=== PATIENT | female | born 1985 | race Caucasian/White ===

== ENCOUNTER 2019-08-07 10:16 | Emergency (ER) | payer OTHER ==
[2019-08-07 11:03] VITALS: RESP 18
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
--- NOTE | 2019-08-07 12:10 | XR ---
EXAMINATION TYPE: XR chest 2V DATE OF EXAM: 08/07/2019 COMPARISON: NONE HISTORY: Chest pain TECHNIQUE: Frontal and lateral views of the chest are obtained. FINDINGS: There is no focal air space opacity. No evidence for pneumothorax. No pleural effusion. The cardiac silhouette size is within normal limits. The osseous structures are grossly intact. IMPRESSION: 1. No acute cardiopulmonary process.
--- NOTE | 2019-08-07 12:10 | XR ---
EXAMINATION TYPE: XR lumbar spine 2 or 3V DATE OF EXAM: 08/07/2019 CLINICAL HISTORY: pain TECHNIQUE: Three views of the lumbar spine are submitted. COMPARISON: None. FINDINGS: There are 5 lumbar type vertebral bodies identified. Postoperative changes of lumbar laminectomy and fusion at L4-5 and L5-S1. Transpedicular screws are in place. Alignment is anatomic. The lumbar spine shows satisfactory alignment without evidence of acute fracture or dislocation. Vertebral body heigh ts are within normal limits. Disc spaces are within normal limits. The overlying soft tissue appea rs unremarkable. IMPRESSION: No acute fracture or dislocation is seen in the lumbar spine. ICD 10 NO FRACTURE, INITIAL EVALUATION
[2019-08-07 12:44] VITALS: BP 126/88; PULSE 90; TEMP 97.9
== END 2019-08-07 12:56 | disposition home or self-care (01) ==
LOC: EC 10:16
DX: S16.1XXA Strain of muscle, fascia and tendon at neck level, initial encounter (principal); G40.909 Epilepsy, unspecified, not intractable, without status epilepticus; Z88.1 Allergy status to other antibiotic agents; Z79.899 Other long term (current) drug therapy; Z98.890 Other specified postprocedural states; V49.49XA Driver injured in collision with other motor vehicles in traffic accident, initial encounter; Y92.410 Unspecified street and highway as the place of occurrence of the external cause
CPT/HCPCS: 71046; 72100; 99284

== ENCOUNTER → 2022-06-22 | Outpatient (CLI) | payer BC, OTHER ==
[2022-06-22 18:20] LABS: Basophils # (A) 0.02 X 10*3/uL (0.00-0.10); Basophils % (A) 0.5 %; Eosinophils # (A) 0.05 X 10*3/uL (0.04-0.35); Eosinophils % (A) 1.3 %; HGB 12.5 g/dL (12.0-15.0); Immature Grans, Automated 0.3 %; Lymphocytes # (A) 1.08 X 10*3/uL (0.90-5.00); Lymphocytes % (A) 27.9 %; MCH 30.2 pg (27.0-32.0); MCHC 33.8 g/dL (32.0-37.0); MCV 89.4 fL (80.0-97.0); Monocytes # (A) 0.24 X 10*3/uL (0.20-1.00); Monocytes % (A) 6.2 %; NRBC Per 100 WBC 0 /100 WBCS (0.0-0.0); Neutrophils # (A) 2.47 X 10*3/uL (1.80-7.70); Neutrophils % (A) 63.8 %; Platelet Count 153 X 10*3/uL (140-440); RBC 4.14 X 10*6/uL (4.10-5.20); WBC 3.87 X 10*3/uL (4.50-10.00)
[2022-06-22 19:13] LABS: Iron 73 ug/dL (50-170)
== END | disposition home or self-care (01) ==
LOC: LABWHC1 12:23
PROVIDERS: ATTEND Family Medicine
DX: I10 Essential (primary) hypertension (principal); Z79.891 Long term (current) use of opiate analgesic
CPT/HCPCS: 36415; 83540; 85025; 86618

== ENCOUNTER → 2022-07-17 | Outpatient (CLI) | payer BC ==
--- NOTE | 2022-07-17 11:44 | MR ---
EXAMINATION TYPE: MR brain wo/w con DATE OF EXAM: 07/17/2022 COMPARISON: NONE HISTORY: Mental status change, chronic daily headaches. Additional symptoms of dizziness per patient. TECHNIQUE: Multiplanar, multisequence images of the brain and brainstem is performed without and with IV contras t, utilizing 8.5 mL intravenous Gadavist . FINDINGS: Diffusion weighted images demonstrate no evidence of a recent infarct or other diffusion ab normality. There is no extra-axial fluid collection or significant white matter signal abnormality. The ventricular system and cisternal spaces are normal in size and appearance. The brain volume is age appropriate. T2 coronal weighted images show hippocampal gyri to appear symmetric and felt within normal limits. Midline structures demonstrate normal morphology. The craniocervical junction appears within normal limits. Post contrast images demonstrate no abnormal enhancement. The dural venous sinuses appear pa tent. The visualized sinuses are clear and the globes are intact. No suspicious fluid signal bilatera l mastoid air cells. IMPRESSION: Unremarkable study. No suspicious findings are evident.
== END | disposition home or self-care (01) ==
LOC: RADMRIMAIN 10:26
PROVIDERS: ATTEND Family Medicine
DX: R41.82 Altered mental status, unspecified (principal); G44.89 Other headache syndrome
CPT/HCPCS: 70553; A9585

== ENCOUNTER → 2023-06-25 | Outpatient (CLI) | payer BC ==
[2023-06-25 17:06] LABS: BUN/Creat Ratio 27.83 Ratio (12.00-20.00); Blood Urea Nitrogen 16.7 mg/dL (9.0-27.0); Carbon Dioxide 25.6 mmol/L (21.6-31.8); Chloride 106 mmol/L (96-109); Glucose 82 mg/dL (70-110); Potassium 4.3 mmol/L (3.5-5.5); Sodium 140 mmol/L (135-145)
[2023-06-25 17:07] LABS: ALT 28 U/L (8-44); AST 25 U/L (13-35); Albumin/Globulin Ratio 2.22 Ratio (1.60-3.17); Alkaline Phosphatase 48 U/L (41-126); Calcium 8.6 mg/dL (8.7-10.3); Globulin 1.8 d/dL (1.6-3.3); T4, Free (Free Thyroxine) 0.86 ng/dL (0.80-1.80); Total Bilirubin 0.2 mg/dL (0.3-1.2); Total Protein 5.8 d/dL (6.2-8.2)
== END | disposition home or self-care (01) ==
LOC: LABWHC1 10:42
PROVIDERS: ATTEND Family Medicine
DX: I10 Essential (primary) hypertension (principal); Z79.899 Other long term (current) drug therapy
CPT/HCPCS: 36415; 80053; 83036; 84439; 84443; 84481; 84681

== ENCOUNTER 2025-04-12 12:04 | Emergency (ER) | payer BC, OTHER ==
[2025-04-12 12:56] LABS: Basophils # (A) 0.01 10*3/uL (0.00-0.10); Basophils % (A) 0.3 %; Eosinophils # (A) 0.07 10*3/uL (0.04-0.35); Eosinophils % (A) 1.9 %; HCT 32.3 % (37.2-46.3); HGB 11.1 g/dL (12.0-15.0); Lymphocytes # (A) 1.13 10*3/uL (0.90-5.00); Lymphocytes % (A) 31.4 %; MCHC 34.4 g/dL (32.0-37.0); MCV 87.3 fL (80.0-97.0); Mean Platelet Volume 10.9 fL (9.5-12.2); Monocytes # (A) 0.21 10*3/uL (0.20-1.00); Monocytes % (A) 5.8 %; Neutrophils # (A) 2.17 10*3/uL (1.80-7.70); Neutrophils % (A) 60.3 %; Platelet Count 148 10*3/uL (140-440); RDW 11.9 % (11.5-14.5)
[2025-04-12 13:06] LABS: ALT 12 U/L (4-34); AST 19 U/L (14-36); African American GFR (CKD) >90 (>60 ml/min/1.73 sqM); Albumin 4.2 g/dL (3.5-5.0); Alkaline Phosphatase 38 U/L (38-126); Anion Gap 8 mmol/L; Blood Urea Nitrogen 15 mg/dL (7-17); Carbon Dioxide 27 mmol/L (22-30); Chloride 105 mmol/L (98-107); Glucose 98 mg/dL (74-99); Non-African American GFR(CKD) >90 (>60 ml/min/1.73 sqM); Potassium 4.4 mmol/L (3.5-5.1); Sodium 140 mmol/L (137-145); Total Bilirubin 0.4 mg/dL (0.2-1.3); Total Protein 6.5 g/dL (6.3-8.2)
--- NOTE | 2025-04-12 16:03 | ED ---
General Adult HPI - General Chief complaint: GI Bleed Stated complaint: GI Bleed/R side Pain Time Seen by Provider: 04/12/25 16:03 Source: patient, family, RN notes reviewed Mode of arrival: ambulatory Limitations: no limitations - History of Present Illness Initial comments: 40-year-old female presented the ER for evaluation of abdominal pain. Patient states on around noon she had an episode of dark red blood per rectum. She states this continued for approximately 4 hours. She states since then she is unable to have a bowel movement. She has tried owep-chl-rheppck laxatives without relief. Patient states she is experiencing a cramping burning abdominal discomfort. She states it feels like there is "a hot omid" after eating. He states shortly after eating pain will radiate to right upper quadrant and right flank.. She also reports her abdomen appears distended. Patient also mitts to decreased appetite and nausea. She denies vomiting. Denies any known fevers but does admit to chills. No urinary complaints. Patient does states she is on her menstrual cycle first day was but states her menstrual cycle started around 6 PM after rectal bleeding. Patient denies any previous abdominal surgeries. No history of ulcerative colitis or Crohn's disease. Patient denies any urinary complaints. No blood thinner use. Patient reports a history of iron deficiency anemia and has received iron infusions in the past. Patient denies headache, cough, congestion, chest pain, shortness of breath or other complaints at this time. - Related Data Home Medications Medication Instructions Recorded Confirmed levETIRAcetam [Keppra] 750 mg PO BID 08/07/19 04/14/25 Albuterol Sulfate/Budesonide 2 puff INHALATION RT-Q4H PRN 04/12/25 04/14/25 [Airsupra 90-80 Mcg Inhaler] Galcanezumab-Gnlm [Emgality Pen] 120 mg SQ Q30D 04/12/25 04/14/25 Lisdexamfetamine Dimesylate 40 mg PO DAILY 04/12/25 04/14/25 [Vyvanse] clonazePAM [KlonoPIN] 1 mg PO BID 04/12/25 04/14/25 Previous Rx's Medication Instructions Recorded Famotidine [Pepcid] 20 mg PO BID #28 tablet 04/12/25 Ondansetron Odt [Zofran ODT] 4 mg PO Q8HR PRN #10 tab 04/12/25 Allergies Allergy/AdvReac Type Severity Reaction Status Date / Time levofloxacin [From Levaquin] AdvReac grand mal Verified 04/14/25 10:59 seizure Review of Systems ROS Statement: Those systems with pertinent positive or pertinent negative responses have been documented in the HPI. ROS Other: All systems not noted in ROS Statement are negative. Past Medical History Past Medical History: No Reported History Additional Past Medical History / Comment(s): Epilepsy History of Any Multi-Drug Resistant Organisms: None Reported Past Surgical History: Back Surgery Past Psychological History: No Psychological Hx Reported Past Alcohol Use History: None Reported Past Drug Use History: None Reported General Exam Limitations: no limitations General appearance: alert, in no apparent distress Respiratory exam: Present: normal lung sounds bilaterally. Absent: respiratory distress, wheezes, rales, rhonchi, stridor Cardiovascular Exam: Present: regular rate, normal rhythm, normal heart sounds. Absent: systolic murmur, diastolic murmur, rubs, gallop, clicks GI/Abdominal exam: Present: soft, tenderness (RUQ), normal bowel sounds Rectal exam: Present: normal inspection, normal rectal tone Neurological exam: Present: alert, oriented X3, CN II-XII intact Skin exam: Present: warm, dry, intact, normal color. Absent: rash Course Vital Signs 04/12/25 04/12/25 04/12/25 12:08 17:10 19:18 Temperature 98.0 F 98.2 F Pulse Rate 80 77 75 Respiratory 16 18 16 Rate Blood Pressure 137/75 102/63 111/71 O2 Sat by Pulse 100 99 99 Oximetry - Reevaluation(s) Reevaluation #1: Rectal exam chaperoned by Dunia Sipmson RN Medical Decision Making - Medical Decision Making Was pt. sent in by a medical professional or institution (, PA, [employer]ENER, urgent care, hospital, or alf...) When possible be specific @ -No Did you speak to anyone other than the patient for history (EMS, parent, family, police, friend...)? What history was obtained from this source @ -No Did you review nursing and triage notes (agree or disagree)? Why? @ -I reviewed and agree with nursing and triage notes Were old charts reviewed (outside hosp., previous admission, EMS record, old EKG, old radiological studies, urgent care reports/EKG's, alf records)? Report findings @ -No old charts were reviewed Differential Diagnosis (chest pain, altered mental status, abdominal pain women, abdominal pain men, vaginal bleeding, weakness, fever, dyspnea, syncope, headache, dizziness, GI bleed, back pain, seizure, CVA, palpatations, mental health, musculoskeletal)? @ -Differential GI Bleed:Esophageal varices, aortoenteric fistula, My- Pierce, gastritis, peptic ulcer disease, diverticulosis, inflammatory bowel disease, hemorrhoids, fissure, colitis, malignancy, Meckel's diverticulum, this is not meant to be an all-inclusive list. EKG interpreted by me (3pts min.). @ -None done X-rays interpreted by me (1pt min.). @ -None done CT interpreted by me (1pt min.). @ -None done U/S interpreted by me (1pt. min.). @ -Gallbladder us borderline dilation of CBD, 0.7 cm. No evidence of acute cholecystitis. Mild hepatic steatosis What testing was considered but not performed or refused? (CT, X-rays, U/S, labs)? Why? @ -None What meds were considered but not given or refused? Why? @ -None Did you discuss the management of the patient with other professionals (professionals i.e. , PA, [employer]ENER, lab, RT, psych nurse, pediatric social worker, general house worker, teacher, chief lifestyle officer, pillowcase folder)? Give summary @ -No Was smoking cessation discussed for >3mins.? @ -No Was critical care preformed (if so, how long)? @ -No Were there social determinants of health that impacted care today? How? (Homelessness, low income, unemployed, alcoholism, drug addiction, transportation, low edu. Level, literacy, decrease access to med. care, usp, rehab)? @ -No Was there de-escalation of care discussed even if they declined (Discuss DNR or withdrawal of care, Hospice)? DNR status @ -No What co-morbidities impacted this encounter? (DM, HTN, Smoking, COPD, CAD, Cancer, CVA, ARF, Chemo, Hep., AIDS, mental health diagnosis, sleep apnea, morbid obesity)? @ -None Was patient admitted / discharged? Hospital course, mention meds given and route, prescriptions, significant lab abnormalities, going to OR and other pertinent info. @ -Discharge. 40-year-old female presented to ER for evaluation of abdominal pain. Workup initiated in triage. Upon rooming, history and physical exam completed. Vital signs stable. Patient no signs acute distress nontoxic- appearing. Given patient reporting bright red blood per stool, rectal exam was performed and chaperoned by Dunia DACOSTA. Rectal exam unremarkable. Laboratory studies obtained remarkable for hemoglobin 11.1 which appears to be patient's baseline. Patient does report a history of iron deficiency anemia and states she is currently on her menstrual cycle. CMP unremarkable. Urinalysis with trace blood likely related to menstrual cycle. No evidence of infection. Urine hCG negative. Stool occult negative. As abdominal exam remarkable for right u pper quadrant abdominal tenderness, gallbladder ultrasound obtained. There is no evidence of acute cholecystitis with a mildly dilated common bile duct measuring 0.7 cm. Hepatobiliary laboratory studies within normal range, total bilirubin 0.4. Patient provided with symptomatic treatment in emergency department. Upon reevaluation, patient educated on today's findings. Patient is comfortable and stable for discharge at this time. Patient tolerating oral intake. Pepcid and Zofran prescribed. Advised patient follow-up closely with PCP for further evaluation in the extremity for 48 hours. Return parameters discussed. Patient discharged stable condition. Patient verbally expressed understanding agree with care plan. Case discussed with ED attending, Dr. Bhatt Undiagnosed new problem with uncertain prognosis? @ -No Drug Therapy requiring intensive monitoring for toxicity (Heparin, Nitro, Insulin, Cardizem)? @ -No Were any procedures done? @ -No Diagnosis/symptom? @ -Abdominal pain Acute, or Chronic, or Acute on Chronic? @ -Acute Uncomplicated (without systemic symptoms) or Complicated (systemic symptoms)? @ -Uncomplicated Side effects of treatment? @ -No Exacerbation, Progression, or Severe Exacerbation? @ -No Poses a threat to life or bodily function? How? (Chest pain, [place], [place], pneumonia, PE, COPD, DKA, ARF, appy, cholecystitis, CVA, Diverticulitis, Homicidal, Suicidal, threat to staff... and all critical care pts) @ -No - Lab Data Result diagrams: 04/12/25 12:53 04/12/25 12:53 Lab Results 04/12/25 04/12/25 04/12/25 Range/Units 12:53 12:53 12:53 WBC 3.60 L (4.50-10.00) 10*3/uL RBC 3.70 L (4.10-5.20) 10*6/uL Hgb 11.1 L (12.0-15.0) g/dL Hct 32.3 L (37.2-46.3) % MCV 87.3 (80.0-97.0) fL MCH 30.0 (27.0-32.0) pg MCHC 34.4 (32.0-37.0) g/dL Plt Count 148 (140-440) 10*3/uL MPV 10.9 (9.5-12.2) fL Immature Gran % (Auto) 0.3 % Neutrophils % 60.3 % Lymphocytes % 31.4 % Monocytes % 5.8 % Eosinophils % 1.9 % Basophils % 0.3 % Immature Gran # 0.01 (0.00-0.04) 10*3/uL Neutrophils # 2.17 (1.80-7.70) 10*3/uL Lymphocytes # 1.13 (0.90-5.00) 10*3/uL Monocytes # 0.21 (0.20-1.00) 10*3/uL Eosinophils # 0.07 (0.04-0.35) 10*3/uL Basophils # 0.01 (0.00-0.10) 10*3/uL Sodium 140 (137-145) mmol/L Potassium 4.4 (3.5-5.1) mmol/L Chloride 105 (98-107) mmol/L Carbon Dioxide 27 (22-30) mmol/L Anion Gap 8 mmol/L BUN 15 (7-17) mg/dL Creatinine 0.57 (0.52-1.04) mg/dL Est GFR (CKD-EPI)AfAm >90 (>60 ml/min/1.73 sqM) Est GFR (CKD-EPI)NonAf >90 (>60 ml/min/1.73 sqM) Glucose 98 (74-99) mg/dL Calcium 9.0 (8.4-10.2) mg/dL Total Bilirubin 0.4 (0.2-1.3) mg/dL AST 19 (14-36) U/L ALT 12 (4-34) U/L Alkaline Phosphatase 38 (38-126) U/L Total Protein 6.5 (6.3-8.2) g/dL Albumin 4.2 (3.5-5.0) g/dL Lipase 117 (23-300) U/L Urine Color Urine Appearance (Clear) Urine pH (5.0-8.0) Ur Specific [place] (1.001-1.035) Urine Protein (Negative) Urine Glucose (UA) (Negative) Urine Ketones (Negative) Urine Blood (Negative) Urine Nitrite (Negative) Urine Bilirubin (Negative) Urine Urobilinogen (<2.0) mg/dL Ur Leukocyte Esterase (Negative) Urine RBC (0-5) /hpf Urine WBC (0-5) /hpf Ur Squamous Epith Cells (0-4) /hpf Urine Bacteria (None) /hpf Urine Mucus (None) /hpf Urine HCG, Qual (Not Detectd) Stool Occult Blood (Negative) 04/12/25 04/12/25 04/12/25 Range/Units 15:14 15:14 17:10 WBC (4.50-10.00) 10*3/uL RBC (4.10-5.20) 10*6/uL Hgb (12.0-15.0) g/dL Hct (37.2-46.3) % MCV (80.0-97.0) fL MCH (27.0-32.0) pg MCHC (32.0-37.0) g/dL Plt Count (140-440) 10*3/uL MPV (9.5-12.2) fL Immature Gran % (Auto) % Neutrophils % % Lymphocytes % % Monocytes % % Eosinophils % % Basophils % % Immature Gran # (0.00-0.04) 10*3/uL Neutrophils # (1.80-7.70) 10*3/uL Lymphocytes # (0.90-5.00) 10*3/uL Monocytes # (0.20-1.00) 10*3/uL Eosinophils # (0.04-0.35) 10*3/uL Basophils # (0.00-0.10) 10*3/uL Sodium (137-145) mmol/L Potassium (3.5-5.1) mmol/L Chloride (98-107) mmol/L Carbon Dioxide (22-30) mmol/L Anion Gap mmol/L BUN (7-17) mg/dL Creatinine (0.52-1.04) mg/dL Est GFR (CKD-EPI)AfAm (>60 ml/min/1.73 sqM) Est GFR (CKD-EPI)NonAf (>60 ml/min/1.73 sqM) Glucose (74-99) mg/dL Calcium (8.4-10.2) mg/dL Total Bilirubin (0.2-1.3) mg/dL AST (14-36) U/L ALT (4-34) U/L Alkaline Phosphatase (38-126) U/L Total Protein (6.3-8.2) g/dL Albumin (3.5-5.0) g/dL Lipase (23-300) U/L Urine Color Colorless Urine Appearance Clear (Clear) Urine pH 6.0 (5.0-8.0) Ur Specific [place] 1.011 (1.001-1.035) Urine Protein Negative (Negative) Urine Glucose (UA) Negative (Negative) Urine Ketones Negative (Negative) Urine Blood Trace H (Negative) Urine Nitrite Negative (Negative) Urine Bilirubin Negative (Negative) Urine Urobilinogen <2.0 (<2.0) mg/dL Ur Leukocyte Esterase Negative (Negative) Urine RBC 2 (0-5) /hpf Urine WBC 1 (0-5) /hpf Ur Squamous Epith Cells 3 (0-4) /hpf Urine Bacteria Rare H (None) /hpf Urine Mucus Rare H (None) /hpf Urine HCG, Qual Not Detected (Not Detectd) Stool Occult Blood Negative (Negative) - Radiology Data Radiology results: report reviewed, image reviewed Disposition Clinical Impression: Abdominal pain Disposition: HOME SELF-CARE Condition: Stable Instructions (If sedation given, give patient instructions): Gastrointestinal Bleeding (ED), Abdominal Pain (ED) Additional Instructions: Follow-up with PCP. Return to the ER for any new or worsening concerns. Prescriptions: Famotidine [Pepcid] 20 mg PO BID #28 tablet Ondansetron Odt [Zofran ODT] 4 mg PO Q8HR PRN #10 tab PRN Reason: Nausea Is patient prescribed a controlled substance at d/c from ED?: No Referrals: Tom Ashby MD [Primary Care Provider] - 1-2 days Time of Disposition: 18:58
[2025-04-12 17:42] LABS: Appearance,Urine Clear (Clear); Bacteria,Urine Rare /hpf; Bilirubin,Urine Negative (Negative); Blood,Urine Trace (Negative); Color,Urine Colorless; Glucose,Urine (UA) Negative (Negative); Ketones,Urine Negative (Negative); Leukocyte Esterase,Urine Negative (Negative); Mucus,Urine Rare /hpf; Nitrite,Urine Negative (Negative); Protein,Urine Negative (Negative); RBC,Urine 2 /hpf (0-5); Specific Gravity,Urine 1.011 (1.001-1.035); Squamous Epithelial Cell,Urine 3 /hpf (0-4); Urobilinogen,Urine <2.0 mg/dL (<2.0); WBC,Urine 1 /hpf (0-5)
--- NOTE | 2025-04-12 18:01 | US ---
EXAMINATION TYPE: US gallbladder DATE OF EXAM: 04/12/2025 COMPARISON: NONE CLINICAL INDICATION: Female, 40 years old with history of RUQ abd pain; RUQ abd pain since last day. nausea TECHNIQUE: Grayscale and color Doppler imaging of the right upper quadrant was performed. FINDINGS: EXAM MEASUREMENTS: Liver Length: 11.9 cm Gallbladder Wall: 0.2 cm CBD: 0.7 cm Right Kidney: 8.2 x 4.0 x 5.2 cm DISPLAY SPECIALIST NOTES:limited due to overlying gas Pancreas: Obscured by bowel gas Liver: slightly increased echogenicity. Gallbladder: wnl Evidence for sonographic Salazar's sign: no CBD: dilated Right Kidney: wnl Pancreas is obscured by overlying bowel gas. Slightly increased echogenicity of the liver compared to the right kidney. No focal lesion identified. Gallbladder is within normal limits without stones alexa ntified. No wall thickening or surrounding fluid. Negative sonographic Salazar's sign. Common bile cathi t is borderline dilated. Right kidney demonstrates no hydronephrosis, shadowing calculus or solid mas s. IMPRESSION: 1. Borderline dilatation of the common bile duct. Correlate with bilirubin levels. 2. No evidence for acute cholecystitis. 3. Mild hepatic steatosis. [facility], , 04/12/2025 5:58 PM
[2025-04-12] MEDS: KETOROLAC 15 MG/ML 1 ML VIAL IVP STA (18:29)
[2025-04-12] MEDS: FAMOTIDINE 20 MG/2 ML VIAL IV STA (18:30)
[2025-04-12] MEDS: ONDANSETRON 4 MG/2 ML VIAL IVP STA (18:30)
[2025-04-12 19:19] VITALS: BP 111/71; PULSE 75; RESP 16; TEMP 98.2
== END 2025-04-12 19:19 | disposition home or self-care (01) ==
LOC: EC 12:04
DX: R10.11 Right upper quadrant pain (principal); Z88.1 Allergy status to other antibiotic agents
CPT/HCPCS: 36415; 80053; 83690; 85025; 82272; 81001; 81025; 76705; 99284; 96374; 96375; J2405; J1885; J1308

== ENCOUNTER 2025-04-13 19:20 | Observation (INO) | payer OTHER ==
--- NOTE | 2025-04-13 22:36 | ED ---
General Adult HPI - General Chief complaint: Abdominal Pain Stated complaint: Abnormal Labs-Sent from CT Time Seen by Provider: 04/13/25 21:28 Source: patient Mode of arrival: ambulatory Limitations: no limitations - History of Present Illness Initial comments: Patient is a previously well 40-year-old female presenting today for abdominal pain and bloody diarrhea. Patient states symptoms began last and she had large volume bloody loose stools for 4 hours overnight. Since then she has had persistent abdominal cramping in the right upper quadrant of her abdomen and has not had a bowel movement. Endorses associated bloating. Denies endorses nausea no episodes of emesis. Denies fevers. Endorses chills. Denies chest pain or shortness of breath, dysuria or hematuria, - Related Data Home Medications Medication Instructions Recorded Confirmed levETIRAcetam [Keppra] 750 mg PO BID 08/07/19 04/14/25 Albuterol Sulfate/Budesonide 2 puff INHALATION RT-Q4H PRN 04/12/25 04/14/25 [Airsupra 90-80 Mcg Inhaler] Galcanezumab-Gnlm [Emgality Pen] 120 mg SQ Q30D 04/12/25 04/14/25 Lisdexamfetamine Dimesylate 40 mg PO DAILY 04/12/25 04/14/25 [Vyvanse] clonazePAM [KlonoPIN] 1 mg PO BID 04/12/25 04/14/25 Previous Rx's Medication Instructions Recorded Famotidine [Pepcid] 20 mg PO BID #28 tablet 04/12/25 Ondansetron Odt [Zofran ODT] 4 mg PO Q8HR PRN #10 tab 04/12/25 Allergies Allergy/AdvReac Type Severity Reaction Status Date / Time levofloxacin [From Levaquin] AdvReac grand mal Verified 04/14/25 10:59 seizure Review of Systems ROS Statement: Those systems with pertinent positive or pertinent negative responses have been documented in the HPI. ROS Other: All systems not noted in ROS Statement are negative. Past Medical History Past Medical History: Seizure Disorder Additional Past Medical History / Comment(s): Epilepsy History of Any Multi-Drug Resistant Organisms: None Reported Past Surgical History: Back Surgery Past Psychological History: No Psychological Hx Reported Smoking Status: Never smoker Past Alcohol Use History: None Reported Past Drug Use History: None Reported General Exam - General Exam Comments Initial Comments: PE: CONSTITUTIONAL: No apparent distress, well appearing SKIN: Warm, dry, no jaundice, hives or petechiae EYES: Pupils are equally round, extraocular movements intact without nystagmus, clear conjunctiva, non-icteric sclera HENT: Normocephalic, atraumatic, moist mucus membranes NECK: , Full range of motion, normal appearance PULMONARY: Clear to auscultation without wheezes, rhonchi, or rales, normal excursion, no accessory muscle use and no stridor CARDIOVASCULAR: Regular rate, rhythm, normal S1 and S2. No appreciated murmurs, rubs or gallops. Strong radial pulses with intact distal perfusion. No lower extremity edema GASTROINTESTINAL: Soft, active bowel sounds throughout, tender to palpation in the lower quadrants, mildly distended, no palpable masses, no rebound or guarding. No hepatosplenomegaly GENITOURINARY: MUSCULOSKELETAL: Extremities have no gross deformity, no edema, redness, or swelling. NEUROLOGIC:_a/o x 3, GCS 15, normal mentation and speech. Moves all extremities x 4 without motor or sensory deficit PSYCHIATRIC:_normal mood and affect, thought process is clear and linear Limitations: no limitations Course Vital Signs 04/13/25 04/14/25 04/14/25 19:25 03:33 04:40 Temperature 98.1 F 97.7 F 98 F Pulse Rate 85 95 Pulse Rate [ 78 Pulse Oximetery ] Respiratory 18 18 17 Rate Blood Pressure 131/85 117/66 Blood Pressure 106/68 [Right Arm] O2 Sat by Pulse 100 99 100 Oximetry 04/14/25 04:41 Temperature 97.7 F Pulse Rate 79 Pulse Rate [ Pulse Oximetery ] Respiratory 18 Rate Blood Pressure 121/79 Blood Pressure [Right Arm] O2 Sat by Pulse 99 Oximetry Medical Decision Making - Medical Decision Making Was pt. sent in by a medical professional or institution (, PA, FRONT END ASSISTANT, urgent care, hospital, or long-term...) When possible be specific @Patient was sent in by her primary care provider, Dr. Ashby Did you speak to anyone other than the patient for history (EMS, parent, family, police, friend...)? What history was obtained from this source @ -No Did you review nursing and triage notes (agree or disagree)? Why? @ -I reviewed nursing and triage notes Were old charts reviewed (outside hosp., previous admission, EMS record, old EKG, old radiological studies, urgent care reports/EKG's, long-term records)? Report findings @ -Medical records reviewed-Reviewed CT abdomen pelvis obtained outpatient on 04/13/2025, showed circumferential wall thickening of the ascending colon without surrounding inflammatory changes, may relate to colitis or infectious or inflammatory etiology, diverticulosis without diverticulitis. Additionally reviewed gallbladder ultrasound obtained yesterday on 04/12/2025, showed borderline dilation of the common bile duct, correlate with bilirubin levels, no evidence of cholecystitis, mild hepatic steatosis Differential Diagnosis (chest pain, altered mental status, abdominal pain women, abdominal pain men, vaginal bleeding, weakness, fever, dyspnea, syncope, headache, dizziness, GI bleed, back pain, seizure, CVA, palpatations, mental health, musculoskeletal)? @Differential Abdominal Pain Women: Appendicitis, Cholecystitis, diverticulosis, ischemic bowel, pancreatitis, hepatitis, UTI, gastroenteritis, AAA, incarcerated hernia, bowel obstruction, constipation, inflammatory bowel, hepatitis, peptic ulcer disease, splenic infarction, perforated viscus, vulvitis, ovarian torsion, PID, kidney stone, this is not meant to be an all-inclusive list EKG interpreted by me (3pts min.). @ -As above X-rays interpreted by me (1pt min.). @ -None done CT interpreted by me (1pt min.). @ -None done U/S interpreted by me (1pt. min.). @ -None done What testing was considered but not performed or refused? (CT, X-rays, U/S, labs)? Why? @ -None What meds were considered but not given or refused? Why? @ ciprofloxacin was considered however pt has allergy to levofloxacin Did you discuss the management of the patient with other professionals (maya meade i.e. , PA, FRONT END ASSISTANT, lab, RT, psych nurse, executive secretary social welfare, transport technician, teacher, chief credit officer, family independence case manager)? Give summary @ -No Was smoking cessation discussed for >3mins.? @ -No Was critical care preformed (if so, how long)? @ -No Were there social determinants of health that impacted care today? How? (Homelessness, low income, unemployed, alcoholism, drug addiction, transportation, low edu. Level, literacy, decrease access to med. care, fci, rehab)? @ -No Was there de-escalation of care discussed even if they declined (Discuss DNR or withdrawal of care, Hospice)? @ -No What co-morbidities impacted this encounter? (DM, HTN, Smoking, COPD, CAD, Cancer, CVA, ARF, Chemo, Hep., AIDS, mental health diagnosis, sleep apnea, morbid obesity)? @ -None Was patient admitted / discharged? Hospital course, mention meds given and route, prescriptions, significant lab abnormalities, going to OR and other pertinent info. @Admission-this is a pleasant 40-year-old female presenting today for abdominal bloating, pain, bloody stools last . Was seen here yesterday and ultimately discharged home. A CT was ordered outpatient by her primary care provider that showed colitis, patient was directed back to the ER for admission by her PCP. Patient was initially seen and assessed in triage hallway due to ED at overflow capacity for multiple boarding patients. I obtained patient's permission to obtain history and perform assessment in the hallway to which she was agreeable. Exam was significant for a mildly distended abdomen with mild tenderness palpation across the lower abdomen. Discussed with patient plan for labs, IV fluids, pain medications, antibiotics and admission. She was agreeable with plan of care.Labs were significant for mild anemia, hemoglobin 11.7, previously yesterday was 11.1, white blood cell count 4.15, total bili 1.1, AST 37, ALT 14, lipase 101, lactic 0.9. Of note labs, pain medications, antibiotics were delayed due to difficulty obtaining IV access. Ultimately IV access was able to be obtained by RN. Barrios and lovely ordered. On reassessment pt osmany ins well appearing in NAD. Case discussed with Dr. Mckeon who kindly accepted pt for admission. GI consult placed. Undiagnosed new problem with uncertain prognosis? @ -No Drug Therapy requiring intensive monitoring for toxicity (Heparin, Nitro, Insulin, Cardizem)? @ -No Were any procedures done? @ -No Diagnosis/symptom? @ -colitis Acute, or Chronic, or Acute on Chronic? @acute Uncomplicated (without systemic symptoms) or Complicated (systemic symptoms)? @complicated Side effects of treatment? @ -No Exacerbation, Progression, or Severe Exacerbation? @ -No Poses a threat to life or bodily function? How? (Chest pain, USA, NC, pneumonia, PE, COPD, DKA, ARF, appy, cholecystitis, CVA, Diverticulitis, Homicidal, Suicidal, threat to staff... and all critical care pts) possibly - Lab Data Result diagrams: 04/15/25 08:55 04/15/25 08:55 Lab Results 04/13/25 04/13/25 04/14/25 Range/Units 23:17 23:17 02:07 WBC 4.15 L (4.50-10.00) 10*3/uL RBC 3.97 L (4.10-5.20) 10*6/uL Hgb 11.7 L (12.0-15.0) g/dL Hct 35.1 L (37.2-46.3) % MCV 88.4 (80.0-97.0) fL MCH 29.5 (27.0-32.0) pg MCHC 33.3 (32.0-37.0) g/dL Plt Count 166 (140-440) 10*3/uL MPV 11.1 (9.5-12.2) fL Immature Gran % (Auto) 0.2 % Neutrophils % 72.1 % Lymphocytes % 21.7 % Monocytes % 4.1 % Eosinophils % 1.4 % Basophils % 0.5 % Immature Gran # 0.01 (0.00-0.04) 10*3/uL Neutrophils # 2.99 (1.80-7.70) 10*3/uL Lymphocytes # 0.90 (0.90-5.00) 10*3/uL Monocytes # 0.17 L (0.20-1.00) 10*3/uL Eosinophils # 0.06 (0.04-0.35) 10*3/uL Basophils # 0.02 (0.00-0.10) 10*3/uL PT (10.0-12.5) sec INR (<1.2) APTT (22.0-30.0) sec Sodium 136 L (137-145) mmol/L Potassium 4.4 (3.5-5.1) mmol/L Chloride 101 (98-107) mmol/L Carbon Dioxide 26 (22-30) mmol/L Anion Gap 9 mmol/L BUN 17 (7-17) mg/dL Creatinine 0.55 (0.52-1.04) mg/dL Est GFR (CKD-EPI)AfAm >90 (>60 ml/min/1.73 sqM) Est GFR (CKD-EPI)NonAf >90 (>60 ml/min/1.73 sqM) Glucose 85 (74-99) mg/dL Plasma Lactic Acid Mina 0.9 (0.7-2.0) mmol/L Calcium 9.4 (8.4-10.2) mg/dL Total Bilirubin 1.1 (0.2-1.3) mg/dL AST 37 H (14-36) U/L ALT 14 (4-34) U/L Alkaline Phosphatase 30 L (38-126) U/L Total Protein 7.7 (6.3-8.2) g/dL Albumin 4.8 (3.5-5.0) g/dL Lipase 101 (23-300) U/L 04/14/25 Range/Units 02:07 WBC (4.50-10.00) 10*3/uL RBC (4.10-5.20) 10*6/uL Hgb (12.0-15.0) g/dL Hct (37.2-46.3) % MCV (80.0-97.0) fL MCH (27.0-32.0) pg MCHC (32.0-37.0) g/dL Plt Count (140-440) 10*3/uL MPV (9.5-12.2) fL Immature Gran % (Auto) % Neutrophils % % Lymphocytes % % Monocytes % % Eosinophils % % Basophils % % Immature Gran # (0.00-0.04) 10*3/uL Neutrophils # (1.80-7.70) 10*3/uL Lymphocytes # (0.90-5.00) 10*3/uL Monocytes # (0.20-1.00) 10*3/uL Eosinophils # (0.04-0.35) 10*3/uL Basophils # (0.00-0.10) 10*3/uL PT 10.8 (10.0-12.5) sec INR 1.0 (<1.2) APTT 25.4 (22.0-30.0) sec Sodium (137-145) mmol/L Potassium (3.5-5.1) mmol/L Chloride (98-107) mmol/L Carbon Dioxide (22-30) mmol/L Anion Gap mmol/L BUN (7-17) mg/dL Creatinine (0.52-1.04) mg/dL Est GFR (CKD-EPI)AfAm (>60 ml/min/1.73 sqM) Est GFR (CKD-EPI)NonAf (>60 ml/min/1.73 sqM) Glucose (74-99) mg/dL Plasma Lactic Acid Mina (0.7-2.0) mmol/L Calcium (8.4-10.2) mg/dL Total Bilirubin (0.2-1.3) mg/dL AST (14-36) U/L ALT (4-34) U/L Alkaline Phosphatase (38-126) U/L Total Protein (6.3-8.2) g/dL Albumin (3.5-5.0) g/dL Lipase (23-300) U/L Disposition Clinical Impression: Acute colitis Disposition: ADMITTED IP TO THIS [facility] Condition: Stable
[2025-04-13 23:56] LABS: ALT 14 U/L (4-34); AST 37 U/L (14-36); African American GFR (CKD) >90 (>60 ml/min/1.73 sqM); Albumin 4.8 g/dL (3.5-5.0); Alkaline Phosphatase 30 U/L (38-126); Anion Gap 9 mmol/L; Blood Urea Nitrogen 17 mg/dL (7-17); Calcium 9.4 mg/dL (8.4-10.2); Carbon Dioxide 26 mmol/L (22-30); Chloride 101 mmol/L (98-107); Glucose 85 mg/dL (74-99); Lipase 101 U/L (23-300); Non-African American GFR(CKD) >90 (>60 ml/min/1.73 sqM); Sodium 136 mmol/L (137-145); Total Protein 7.7 g/dL (6.3-8.2)
[2025-04-14 00:09] LABS: Potassium 4.4 mmol/L (3.5-5.1)
[2025-04-14 02:48] LABS: Basophils # (A) 0.02 10*3/uL (0.00-0.10); Basophils % (A) 0.5 %; Eosinophils # (A) 0.06 10*3/uL (0.04-0.35); Eosinophils % (A) 1.4 %; HCT 35.1 % (37.2-46.3); HGB 11.7 g/dL (12.0-15.0); Lymphocytes # (A) 0.90 10*3/uL (0.90-5.00); Lymphocytes % (A) 21.7 %; MCH 29.5 pg (27.0-32.0); MCHC 33.3 g/dL (32.0-37.0); MCV 88.4 fL (80.0-97.0); Monocytes # (A) 0.17 10*3/uL (0.20-1.00); Monocytes % (A) 4.1 %; Neutrophils # (A) 2.99 10*3/uL (1.80-7.70); Neutrophils % (A) 72.1 %; Platelet Count 166 10*3/uL (140-440); RBC 3.97 10*6/uL (4.10-5.20); RDW 11.9 % (11.5-14.5); WBC 4.15 10*3/uL (4.50-10.00)
[2025-04-14] MEDS ORDERED: NALOXONE 0.4 MG/ML 1 ML VIAL IV PRN (03:00)
[2025-04-14] MEDS ORDERED: MORPHINE SULFATE 4 MG/ML SYRINGE IV PRN (03:00)
[2025-04-14] MEDS ORDERED: ACETAMINOPHEN TAB 325 MG TAB PO PRN (03:00)
[2025-04-14 03:12] LABS: INR 1.0 (<1.2); Partial Thromboplastin Time 25.4 sec (22.0-30.0); Prothrombin Time 10.8 sec (10.0-12.5)
[2025-04-14] MEDS: MORPHINE SULFATE 4 MG/ML SYRINGE IVP STA (03:48)
[2025-04-14] MEDS: ONDANSETRON 4 MG/2 ML VIAL IVP STA (03:49)
[2025-04-14] MEDS: SODIUM CHLORIDE 0.9% 1,000 ML IV SCH (03:50)
[2025-04-14] MEDS: clonazePAM 0.5 MG TAB PO STA (04:02)
[2025-04-14] MEDS: clonazePAM 1 MG TAB PO STA (04:21)
[2025-04-14] MEDS: levETIRAcetam 250 MG TAB PO STA (04:22)
[2025-04-14 04:46] LABS: Bacteria,Urine Many /hpf; Bilirubin,Urine Negative (Negative); Blood,Urine Small (Negative); Color,Urine Colorless; Glucose,Urine (UA) Negative (Negative); Ketones,Urine Negative (Negative); Leukocyte Esterase,Urine Negative (Negative); Mucus,Urine Rare /hpf; Nitrite,Urine Negative (Negative); PH, Urine 6.0 (5.0-8.0); Protein,Urine Negative (Negative); RBC,Urine 4 /hpf (0-5); Specific Gravity,Urine 1.007 (1.001-1.035); Squamous Epithelial Cell,Urine 33 /hpf (0-4); Urobilinogen,Urine <2.0 mg/dL (<2.0); WBC,Urine 2 /hpf (0-5)
[2025-04-14] MEDS: metroNIDAZOLE-NS PMX 500 MG in SALINE 1 100ML.BAG IVPB STA (05:33)
[2025-04-14] MEDS: FAMOTIDINE 20 MG TAB PO SCH (09:11)
[2025-04-14] MEDS: clonazePAM 1 MG TAB PO SCH (09:11)
[2025-04-14] MEDS: PANTOPRAZOLE 40 MG/10 ML VIAL IV SCH (09:12)
[2025-04-14] MEDS: NON FORMULARY DRUG (Lisdexamfetamine Dimesylate [Vyvanse] 40 MG Capsule) PO SCH (09:15)
--- NOTE | 2025-04-14 11:29 | P.CONS ---
History of Present Illness - Reason for Consult Consult date: 04/14/25 Colitis Requesting physician: Sandi Mondragon - Chief Complaint Abdominal pain - History of Present Illness This a pleasant 40-year-old female who had presented to the emergency department yesterday with complaints of abdominal pain mostly on the right side and bloating. Patient was also seen in our emergency department 04/12/2025 for abdominal pain and lower GI bleed, however was discharged home. Patient presented back yesterday with complaints of ongoing abdominal pain however no further blood per rectum. Patient states last week from 12 AM until 4 AM she had continual diarrhea with blood about every 30 minutes associated with cramping. Since that time she has had no further bleeding but she continues to have right sided abdominal pain. She has had no further bowel movements other than very small round harder bowel movement. Apparently she had an outpatient CT of the abdomen pelvis with oral contrast on 04/13/2025 that showed thickening of the ascending colon and diverticulosis without any evidence of diverticulitis. Gastroenterology was consulted for colitis. She denies any previous history of colitis or Crohn's disease. Patient's mother is at the bedside states that she has had microscopic colitis, no family history of ulcerative colitis or Crohn's disease. She received 2 doses of antibiotics during her ER visits. She has no leukocytosis. No nausea or vomiting. She is tolerating clear liquid diet. States bowel movements are normally every 1 to 2 days. No previous history of colonoscopy. Review of Systems REVIEW OF SYSTEMS: CARDIOPULMONARY: No chest pain or shortness of breath. Gastrointestinal: Abdominal pain, mostly in the mid to lower right quadrant. No nausea or vomiting. No hematemesis, coffee-ground emesis. Bright red blood with loose stool 6 days ago. No bleeding currently. GENITOURINARY: No dysuria or hematuria. MUSCULOSKELETAL: Reports normal range of motion. SKIN: No rashes. No jaundice. ENDOCRINE: No chills, fevers. No excessive weight gain or loss. No polydipsia or polyuria. PSYCHIATRIC: Unremarkable. NEUROLOGY: No change in mental status. Denies dizziness, headache. ENT: Vision unremarkable. CONSTITUTIONAL: No recent weight loss. No fever, chills, night sweats. Past Medical History Past Medical History: Seizure Disorder Additional Past Medical History / Comment(s): Epilepsy History of Any Multi-Drug Resistant Organisms: None Reported Past Surgical History: Back Surgery Past Psychological History: No Psychological Hx Reported Smoking Status: Never smoker Past Alcohol Use History: None Reported Past Drug Use History: None Reported Medications and Allergies Home Medications Medication Instructions Recorded Confirmed Type levETIRAcetam [Keppra] 750 mg PO BID 08/07/19 04/14/25 History Albuterol Sulfate/Budesonide 2 puff INHALATION RT-Q4H PRN 04/12/25 04/14/25 History [Airsupra 90-80 Mcg Inhaler] Famotidine [Pepcid] 20 mg PO BID #28 tablet 04/12/25 04/14/25 Rx Galcanezumab-Gnlm [Emgality Pen] 120 mg SQ Q30D 04/12/25 04/14/25 History Ibuprofen [Motrin] 800 mg PO TID PRN 04/12/25 04/14/25 History Ketorolac [Toradol] 10 mg PO Q8HR #15 tab 04/12/25 04/14/25 Rx Lisdexamfetamine Dimesylate 40 mg PO DAILY 04/12/25 04/14/25 History [Vyvanse] Ondansetron Odt [Zofran Odt] 4 mg PO Q8HR PRN #10 tab 04/12/25 04/14/25 Rx clonazePAM [KlonoPIN] 1 mg PO BID 04/12/25 04/14/25 History Allergies Allergy/AdvReac Type Severity Reaction Status Date / Time levofloxacin [From Levaquin] AdvReac grand mal Verified 04/14/25 10:59 seizure Physical Exam Vitals: Vital Signs Temp Pulse Pulse Resp BP BP Pulse Ox 04/14/25 06:57 97.7 F 66 16 96/59 98 04/14/25 04:41 97.7 F 79 18 121/79 99 04/14/25 04:40 98 F 78 17 106/68 100 04/14/25 03:33 97.7 F 95 18 117/66 99 04/13/25 19:25 98.1 F 85 18 131/85 100 Intake and Output 04/13/25 04/14/25 04/14/25 22:59 06:59 14:59 Other: # Voids 0 Weight 82.554 kg 82.554 kg General appearance: The patient is alert, oriented, appears in no acute distress. HET: Head is normocephalic and atraumatic. Conjunctiva pink. Sclera anicteric. Neck: Supple without lymphadenopathy. Trachea midline. Heart: Regular. Lungs: Equal expansion, normal respiratory effort. Abdomen: Soft, right side abdominal tenderness, nondistended. Skin: No rashes. No jaundice. Extremities: Normal skin color and turgor. No pedal edema. Neurological: No focal deficits. Alert and oriented x3. Results CBC & Chem 7: 04/14/25 02:07 04/13/25 23:17 Labs: Abnormal Lab Results - Last 24 Hours (Table) 04/13/25 04/14/25 04/14/25 Range/Units 23:17 02:07 03:00 WBC 4.15 L (4.50-10.00) 10*3/uL RBC 3.97 L (4.10-5.20) 10*6/uL Hgb 11.7 L (12.0-15.0) g/dL Hct 35.1 L (37.2-46.3) % Monocytes # 0.17 L (0.20-1.00) 10*3/uL Sodium 136 L (137-145) mmol/L AST 37 H (14-36) U/L Alkaline Phosphatase 30 L (38-126) U/L Urine Appearance Cloudy H (Clear) Urine Blood Small H (Negative) Ur Squamous Epith Cells 33 H (0-4) /hpf Urine Bacteria Many H (None) /hpf Urine Mucus Rare H (None) /hpf Comments: CAT scan abdomen and pelvis with oral contrast done on 04/13/2025 reports circumferential wall thickening of the ascending colon without surrounding inflammatory changes. Findings may relate to colitis from an infectious/inflammatory etiology. Sigmoid diverticulosis without evidence for acute diverticulitis. An ultrasound done 04/12/2025 reports borderline dilation of common bile duct. Correlate with bilirubin levels. No evidence for acute cholecystitis. Bile hepatic steatosis. Assessment and Plan (1) Acute colitis Narrative/Plan: 40-year-old female with multiple episodes of bloody diarrhea associated with cramping 6 days ago was seen in the emergency department 2 days ago and sent home. She continues to have abdominal pain and bloating in the right mid abdomen. CT scan with evidence of circumferential wall thickening in the ascending colon. Likely dealing with acute infectious colitis.need to consider possible inflammatory colitis if symptoms do not resolve. Follow-up with gastroenterology. . Will give MiraLAX for constipation. No plans at this time for colonoscopy. Recommend IV Flagyl while inpatient and 7-day course of oral on discharge. Current Visit: Yes Status: Acute Code(s): K52.9 - NONINFECTIVE GASTROENTERITIS AND COLITIS, UNSPECIFIED SNOMED Code(s): 65873540 (2) Abdominal pain Current Visit: No Status: Acute Code(s): R10.9 - UNSPECIFIED ABDOMINAL PAIN SNOMED Code(s): 55198789 Plan: 1. Continue symptomatic and supportive care 2. Clear liquid diet, advance as tolerated 3. Protonix 40 mg daily for GI prophylaxis 4. Will give MiraLAX daily 5. Pain control per primary medical team 6. No plans for colonoscopy at this time 7. CRP and sed rate ordered 8. Start IV Flagyl while inpatient. Recommend oral Flagyl for 7 days on discharge. 8. Rest of medical management per primary medical team Thank you for this consultation, recommend outpatient follow-up with gastroenterology. Dr. Coleen Lowe I agree with the dictator's note, documented as a scribe by Natasha Leavitt.
[2025-04-14] MEDS: KETOROLAC 15 MG/ML 1 ML VIAL IVP SCH (11:56)
[2025-04-14] MEDS ORDERED: ALBUTEROL NEBULIZED 2.5 MG/3 ML INHALATION PRN (12:24)
[2025-04-14] MEDS: HYDROmorphone 0.5 MG/0.5 ML SYRINGE IVP PRN (14:18)
[2025-04-14] MEDS: metroNIDAZOLE-NS PMX 500 MG in SALINE 1 100ML.BAG IVPB SCH (14:19)
--- NOTE | 2025-04-15 02:26 | PN ---
PROGRESS NOTE SUBJECTIVE: IV antibiotics, being slightly improved. PHYSICAL EXAMINATION: VITAL SIGNS: O2 of 97%, blood pressure is low 90s to 100/63, temp 98, pulse 69. CARDIOVASCULAR: S1, S2. LUNGS: Transmitted upper sounds. GI: Soft. HEMATOLOGY: Negative Homans. LABORATORY DATA: White count is 4.8, hemoglobin is 11.7 Wait for the GI consultation. Prognosis is guarded. Please see further orders. MMODL / IJN: [id number] /
--- NOTE | 2025-04-15 07:36 | HP ---
HISTORY AND PHYSICAL HISTORY OF PRESENT ILLNESS: admitted with IV antibiotics and IV steroids. REVIEW OF SYSTEMS: 14-point review of systems otherwise is negative. PAST MEDICAL HISTORY: Seizure disorder, epilepsy, and lumbar surgery. SOCIAL HISTORY: Smoker, vape. HISTORY OF PRESENT ILLNESS: VITAL SIGNS: Stable. Temp 96.8, blood pressure is . HEENT: Normocephalic, atraumatic. LUNGS: Transmitted upper airway sounds. CARDIOVASCULAR: S1, S2. HEMATOLOGY: Negative Homans. . CAT scan as mentioned shows some colitis, abdominal pain, abdominal bloating, associated seizures Protonix, MiraLAX, pain control. No colonoscopy. Plan is for IV Flagyl. Discharge prognosis guarded. MMODL / IJN: [id number] /
[2025-04-15 09:12] LABS: Basophils # (A) 0.01 10*3/uL (0.00-0.10); Basophils % (A) 0.3 %; Eosinophils # (A) 0.07 10*3/uL (0.04-0.35); Eosinophils % (A) 2.3 %; HCT 29.3 % (37.2-46.3); Lymphocytes # (A) 0.90 10*3/uL (0.90-5.00); Lymphocytes % (A) 29.7 %; MCH 29.7 pg (27.0-32.0); MCHC 33.8 g/dL (32.0-37.0); MCV 88.0 fL (80.0-97.0); Monocytes # (A) 0.29 10*3/uL (0.20-1.00); Monocytes % (A) 9.6 %; Neutrophils # (A) 1.75 10*3/uL (1.80-7.70); Neutrophils % (A) 57.8 %; RBC 3.33 10*6/uL (4.10-5.20); RDW 12.2 % (11.5-14.5); WBC 3.03 10*3/uL (4.50-10.00)
[2025-04-15 09:16] LABS: HGB 9.9 g/dL (12.0-15.0)
[2025-04-15 09:31] LABS: ALT 9 U/L (4-34); AST 19 U/L (14-36); African American GFR (CKD) >90 (>60 ml/min/1.73 sqM); Albumin 3.0 g/dL (3.5-5.0); Alkaline Phosphatase 27 U/L (38-126); Anion Gap 4 mmol/L; Blood Urea Nitrogen 9 mg/dL (7-17); Calcium 8.4 mg/dL (8.4-10.2); Carbon Dioxide 24 mmol/L (22-30); Chloride 109 mmol/L (98-107); Glucose 81 mg/dL (74-99); Non-African American GFR(CKD) >90 (>60 ml/min/1.73 sqM); Potassium 4.2 mmol/L (3.5-5.1); Sodium 137 mmol/L (137-145); Total Protein 5.1 g/dL (6.3-8.2)
[2025-04-15 09:55] LABS: Platelet Count 118 10*3/uL (140-440)
--- NOTE | 2025-04-15 11:21 | P.PN ---
Subjective Progress Note Date: 04/15/25 Principal diagnosis: Acute colitis This a pleasant 40-year-old female who had presented to the emergency department yesterday with complaints of abdominal pain mostly on the right side and bloating. Patient was also seen in our emergency department 04/12/2025 for abdominal pain and lower GI bleed, however was discharged home. Patient presented back yesterday with complaints of ongoing abdominal pain however no further blood per rectum. Patient states last week from 12 AM until 4 AM she had continual diarrhea with blood about every 30 minutes associated with cramping. Since that time she has had no further bleeding but she continues to have right sided abdominal pain. She has had no further bowel movements other than very small round harder bowel movement. Apparently she had an outpatient CT of the abdomen pelvis with oral contrast on 04/13/2025 that showed thickening of the ascending colon and diverticulosis without any evidence of diverticulitis. Gastroenterology was consulted for colitis. She denies any previous history of colitis or Crohn's disease. Patient's mother is at the bedside states that she has had microscopic colitis, no family history of ulcerative colitis or Crohn's disease. She received 2 doses of antibiotics during her ER visits. She has no leukocytosis. No nausea or vomiting. She is tolerating clear liquid diet. States bowel movements are normally every 1 to 2 days. No previous history of colonoscopy. 04/15/2025 Patient seen and examined today as a follow-up. She was started on IV Flagyl yesterday. States abdominal pain has improved now just feels sort of like it is bruised. She did have a bowel movement which she states was firm. No nausea or vomiting. He has been tolerating her clear liquid diet. Patient has been afebrile. Objective - Vital Signs Vital signs: Vital Signs Temp 97.5 F L 04/15/25 09:05 Pulse 87 04/15/25 09:05 Resp 16 04/14/25 13:11 BP 98/64 04/15/25 09:05 Pulse Ox 99 04/15/25 09:05 FiO2 Intake & Output 04/14/25 04/15/25 04/15/25 18:59 06:59 18:59 Intake Total 250 Balance 250 Intake: Oral 250 Other: Voiding Method Toilet Toilet # Voids 1 2 # Bowel Movements 1 - Exam General appearance: The patient is alert, oriented, appears in no acute distress. HET: Head is normocephalic and atraumatic. Conjunctiva pink. Sclera anicteric. Neck: Supple without lymphadenopathy. Abdomen: Soft, mild right lower tenderness, nondistended. Extremities: Normal skin color and turgor. No pedal edema Skin: No rashes, no jaundice Neurological: No focal deficits. Alert and oriented. - Labs CBC & Chem 7: 04/15/25 08:55 04/15/25 08:55 Labs: Abnormal Lab Results - Last 24 Hours (Table) 04/15/25 04/15/25 Range/Units 08:55 08:55 WBC 3.03 L (4.50-10.00) 10*3/uL RBC 3.33 L (4.10-5.20) 10*6/uL Hgb 9.9 L D (12.0-15.0) g/dL Hct 29.3 L (37.2-46.3) % Plt Count 118 L (140-440) 10*3/uL Neutrophils # 1.75 L (1.80-7.70) 10*3/uL Chloride 109 H (98-107) mmol/L Creatinine 0.50 L (0.52-1.04) mg/dL Alkaline Phosphatase 27 L (38-126) U/L Total Protein 5.1 L (6.3-8.2) g/dL Albumin 3.0 L (3.5-5.0) g/dL Assessment and Plan (1) Acute colitis Narrative/Plan: 40-year-old female with multiple episodes of bloody diarrhea associated with cramping 6 days ago was seen in the emergency department 2 days ago and sent home. She continues to have abdominal pain and bloating in the right mid abdomen. CT scan with evidence of circumferential wall thickening in the ascending colon. Likely dealing with acute infectious colitis.need to consider possible inflammatory colitis if symptoms do not resolve. Follow-up with gastroenterology. . Will give MiraLAX for constipation. No plans at this time for colonoscopy. Recommend IV Flagyl while inpatient and 7-day course of oral on discharge. Inflammatory markers negative. Again likely just acute infectious colitis. Continue antibiotics as recommended. Current Visit: Yes Status: Acute Code(s): K52.9 - NONINFECTIVE GASTROENTERITIS AND COLITIS, UNSPECIFIED SNOMED Code(s): 52774989 (2) Abdominal pain Current Visit: No Status: Acute Code(s): R10.9 - UNSPECIFIED ABDOMINAL PAIN SNOMED Code(s): 65945504 Plan: 1. Continue symptomatic and supportive care 2. Advance to full liquid diet, then advance as tolerated 3. Protonix 40 mg daily for GI prophylaxis 4. Will give MiraLAX daily 5. Pain control per primary medical team 6. No plans for colonoscopy at this time 7. CRP and sed rate ordered 8. Continue IV Flagyl while inpatient. Recommend oral Flagyl for 7 days on discharge. 8. Rest of medical management per primary medical team Thank you for this consultation, if patient can tolerate advancement in diet cl eared from gastroenterology. Outpatient follow-up as needed. We will sign off at this time. Dr. Coleen Lowe I agree with the dictator's note, documented as a scribe by Natasha Leavitt.
[2025-04-15] MEDS ORDERED: metroNIDAZOLE-NS PMX 500 MG in SALINE 1 100ML.BAG IVPB SCH ×2 (18:00→21:00)
[2025-04-15 18:06] VITALS: RESP 17
[2025-04-15 20:42] VITALS: BP 116/69; PULSE 60; TEMP 98.4
[2025-04-16] MEDS ORDERED: GALCANEZUMAB GNLM 120 MG/ML SQ SCH (09:00)
== END 2025-04-15 21:17 | disposition home or self-care (01) ==
LOC: EC 19:20 → 1SOBS 04-14 03:00 → 4SSUR 04-15 17:06
PROVIDERS: ADMIT Family Medicine; ATTEND Family Medicine
DX: K52.9 Noninfective gastroenteritis and colitis, unspecified (principal); F17.290 Nicotine dependence, other tobacco product, uncomplicated; Z79.899 Other long term (current) drug therapy; Z88.1 Allergy status to other antibiotic agents
CPT/HCPCS: 96376 ×2; 96361 ×2; 96366 ×2; 96367; 96375 ×2; 96365; 99285; 36415; 80053 ×2; 85652; 83605; 83690; 85025 ×2; 85610; 85730; 86140; 81001; 81025; 87086; 87045; 87046; G0378 ×2; J2270; J2405; J0696; J1885 ×2; J1171 ×2; J1836 ×2; J2470 ×2

== ENCOUNTER → 2025-04-13 | Outpatient (CLI) | payer OTHER ==
--- NOTE | 2025-04-13 18:37 | CT ---
EXAMINATION TYPE: CT abdomen pelvis wo con CT DLP: 478.2 mGycm, Automated exposure control for dose reduction was used. DATE OF EXAM: 04/13/2025 6:21 PM COMPARISON: Gallbladder ultrasound 04/12/2025 CLINICAL INDICATION:Female, 40 years old with history of K92.1 MELENA; blood and diarrhea on night, RUQ pain and distension since TECHNIQUE: Standard CT of the abdomen and pelvis following the administration of oral contrast. Cor onal and sagittal reformats were performed. FINDINGS: Evaluation is limited due to lack of intravenous contrast. LOWER CHEST: Unremarkable ABDOMEN LIVER: Morongo tail morphology. No focal lesion within noncontrast limitations. GALLBLADDER AND BILE DUCTS: Unremarkable noncontrast appearance. Common bile duct measures up to 6 mm which is at the upper limits of normal. PANCREAS: Unremarkable noncontrast appearance. SPLEEN: Upper limits of normal size measuring 13.3 cm in CC dimension. ADRENAL GLANDS: Unremarkable noncontrast appearance.. KIDNEYS AND URETERS: No evidence of hydronephrosis or renal calculus. No hydroureter or ureteral calc ulus identified. PELVIS BLADDER: Incompletely distended but grossly unremarkable. REPRODUCTIVE: Unremarkable. ABDOMEN & PELVIS STOMACH AND BOWEL: Stomach and duodenum are unremarkable. Sigmoid diverticulosis without evidence for acute diverticulitis. The appendix is within normal limits. Enteric contrast reaches the cecum. Circ umferential wall thickening of the ascending colon measuring up to 1.3 cm. No surrounding fat strandi ng. No pneumatosis. No evidence of bowel obstruction. PERITONEUM: No evidence of pneumoperitoneum. Small amount of free fluid in the pelvic cul-de-sac whic h is likely physiologic. VASCULATURE: No evidence of aortic aneurysm. MUSCULOSKELETAL: No acute osseous abnormalities. Postsurgical changes with bilateral pedicular screws and laminectomy changes at L5-S1. Intervertebral disc fusion cages identified at L4-L5 and L5-S1. Th ey are located along the posterior aspect of the disc space. LYMPH NODES: No gross evidence for lymphadenopathy. SOFT TISSUE/ABDOMINAL WALL: Unremarkable IMPRESSION: 1. Circumferential wall thickening of the ascending colon without surrounding inflammatory changes. Findings may relate to colitis from an infectious/inflammatory etiology. 2. Sigmoid diverticulosis without evidence for acute diverticulitis. [facility], , 04/13/2025 6:35 PM
== END | disposition home or self-care (01) ==
LOC: RADCTMAIN 16:07
PROVIDERS: ATTEND Family Medicine
DX: K57.30 Diverticulosis of large intestine without perforation or abscess without bleeding (principal)
CPT/HCPCS: 74176